=== PATIENT | male | born 1970 | race Caucasian/White ===

== ENCOUNTER 2018-12-29 20:33 | Observation (INO) ==
[2018-12-29] MEDS ORDERED: NS 1,000 ML IV ONE (20:56)
--- NOTE | 2018-12-29 21:37 | Diag Imaging Result Doc PS360 ---
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 Compared to 08/08/2015 there has been no significant change. IMPRESSION: Stable chest. Electronically signed by Sid Fischer 12/29/2018 9:35 PM
--- NOTE | 2018-12-29 21:45 | Diag Imaging Result Doc PS360 ---
EXAM: HAND 2 VIEWS RIGHT 12/29/2018 HISTORY: hand infection TECHNIQUE: Right hand three views COMMENT: There is no evidence of fracture, dislocation, periosteal reaction or erosion. There is what appears to be a bone island in the proximal phalanx of the thumb. IMPRESSION: No evidence of acute bony abnormality. Electronically signed by Sid Fischer 12/29/2018 9:43 PM
[2018-12-29] MEDS ORDERED: TYLENOL PO ONE (22:14)
[2018-12-29 22:37] LABS: BASO# 0.02 X1000 (0.0-0.2); BASO% 0.2 % (0.0-0.8); EOS# 0.01 X1000 (0.0-0.7); EOS% 0.1 % (0.0-10.0); HEMATOCRIT 45.7 % (42.0-52.0); HEMOGLOBIN 15.9 g/dL (14.0-18.0); IMM GRAN# 0.02 X1000 (0.0-0.04); IMM GRAN% 0.2 % (0.0-0.5); LYMPH# 0.63 X1000 (1.2-3.4); LYMPH% 5.5 % (20.5-51.1); MCHC 34.8 g/dL (33-37); MCV 83.2 FL (81-99); MONO# 0.48 X1000 (0.11-0.59); MONO% 4.2 % (1.7-9.3); NEUT# 10.39 X1000 (1.4-6.5); NEUT% 89.8 % (42.2-75.2); PLT 201 X1000 (130-400); RBC 5.49 XMIL (4.7-6.1); RDW 12.6 % (11.5-14.5); WBC 11.55 X1000 (4.8-10.8)
[2018-12-29 22:41] LABS: INR 0.99; PROTIME 13.9 Seconds (11.0-16.0)
[2018-12-29 22:42] LABS: PTT 24.1 Seconds (22.3-41.8)
[2018-12-29 22:54] LABS: AGAP 13; ALB/GLOB RATIO 2.2; ALBUMIN 4.4 g/dL (3.5-5.0); ALKALINE PHOSPHATASE 73 U/L (32-122); BUN 15 mg/dL (8-22); CALCIUM 8.8 mg/dL (8.8-10.2); CHLORIDE 103 mmol/L (98-107); CK PROFILE 132 U/L (24-204); COSMO 279; CREATININE 0.9 mg/dL (0.7-1.2); ESTIMATED GFR > 60; GLUCOSE 113 mg/dL (70-104); GOT 23 U/L (10-34); GPT 19 U/L (10-44); POTASSIUM 3.9 mmol/L (3.5-5.1); SODIUM 139 mmol/L (136-145); TCO2 23 mmol/L (25-35); TOTAL BILIRUBIN 0.65 mg/dL (0.20-1.00); TOTAL PROTEIN 6.4 g/dL (6.3-8.3)
[2018-12-29] MEDS ORDERED: ZOFRAN IV ONE (22:56)
[2018-12-30] MEDS ORDERED: ROCEPHIN 1 GM in NS 50 ML IV ONE (00:18)
[2018-12-30] MEDS ORDERED: NS 1,000 ML IV ONE (00:26)
--- NOTE | 2018-12-30 01:09 | PROVIDER DOCUMENTATION ---
This chart was entered by Batsheva Botello Scribe, acting as scribe for Malissa Omer MD. HPI-General Adult - General Stated Complaint: infection in hand Time Seen by Provider: 12/29/18 20:41 Source: patient, EMS Allergies/Adverse Reactions: Patient Allergies Allergy/AdvReac Type Severity Reaction Status Date / Time immune globulin,gamma (IgG) Allergy Severe ANAPHYLAXIS Verified 12/29/18 21:42 human [From Gammagard S-D (IgA < 1 mcg/mL)] Iodinated Contrast- Oral and Allergy RASH Verified 12/29/18 21:42 IV Dye Home Medications: Home Medication List Medication Instructions Recorded Confirmed Last Taken Type Amlodipine Besylate [Norvasc] 10 mg PO QHS 07/05/16 07/06/16 07/05/16 History Lisinopril 40 mg PO DAILY 07/05/16 07/06/16 07/06/16 History Ondansetron Odt [Zofran 4 mg Odt] 4 mg PO Q6H PRN PRN #10 tablet 07/05/16 07/06/16 07/05/16 Rx SIMVAstatin [Zocor] 10 mg PO QHS 07/05/16 07/06/16 07/05/16 History Tamsulosin [Flomax] 0.4 mg PO DAILY #30 capsule 07/05/16 07/06/16 07/06/16 Rx Diphenhydramine [Benadryl] 50 mg PO TID #15 capsule 07/06/16 Unknown Rx Hydrocodone/Acetaminophen [[place] 1 ea PO Q4-6H PRN PRN #12 tab 03/15/18 Unknown Rx 5-325 Tablet] - History of Present Illness -Gen Adult Nature of Presenting Problems: pt came in ems for n/v, dryheaving, fever of 101 and possible rt hand infection. pt was seen by dr bustillo for possible infection. rt hand was i&d. pt has extensive IGG deficiency. pt does not use cigarettes, alcohol or drugs. Review of Systems - Adult - REVIEW OF SYSTEMS - ADULT Constitutional: reports: see HPI, fever (101). denies: chills, fatique, night s weats Eyes: reports: no symptoms reported Ears, Nose, Mouth & Throat: reports: no symptoms reported Cardiovascular: reports: no symptoms reported Respiratory: reports: no symptoms reported Gastrointestinal: reports: see HPI, nausea, vomiting, other (dry heaving). denies: abdominal pain, hematemesis, diarrhea Genitourinary: reports: no symptoms reported Musculoskeletal: reports: see HPI, joint pain (poss rt hand infection). denies: bone pain, back pain, joint swelling Integumentary: reports: no symptoms reported Neurological: reports: no symptoms reported Psychiatric: reports: no symptoms reported Endocrine: reports: no symptoms reported Hematologic/Lymphatic: reports: no symptoms reported Allergic/Immunologic: reports: no symptoms reported All Other Systems: Reviewed and Negative Past History - Adult - PAST MEDICAL HISTORY-ADULT Review of Records: reports: Old Records Reviewed, Nursing Assessment Review, M edications Reviewed, Social history reviewed & non-contributory. Major Childhood Illnesses: reports: denies history Cardiovascular: reports: HTN, hyperlipidemia Respiratory: reports: denies history Gastrointestinal: reports: other (IGG deficiency) Obstetrical/Gynecological: reports: denies history Genitourinary: reports: denies history Musculoskeletal: reports: denies history Neurological: reports: denies history Endocrine/Immune: reports: denies history Other Conditions: reports: denies history - PRIOR SURGERIES/PROCEDURES Surgical/Procedure History: reports: hernia repair - PRIOR HOSPITALIZATIONS Prior Hospitalizations: reports: for other non-related - IMMUNIZATION STATUS Childhood Immunizations: See Nurse Assessment Flu Vaccine: See Nurse Assessment - FAMILY HISTORY Family History: reviewed, not pertinent - SOCIAL HISTORY Smoking: non-smoker Substance Use: none/never Physical Exam-General - PHYSICAL EXAM-ADULT Initial Vital Signs Reviewed: Yes - CONSTITUTIONAL General Appearance: appears well, alert, no apparent distress - EYES Eyes: PERRL/EOMI, pink conjunctivae - HEAD, EARS, NOSE, MOUTH & THROAT HENMT: normocephalic/atraumatic, moist mucous membranes, normal ENT inspection - NECK Neck: non-tender, full range of motion, supple, normal inspection - RESPIRATORY Respiratory: chest non-tender, lungs clear, normal breath sounds - CARDIOVASCULAR Cardiovascular: normal peripheral pulses, regular rate, rhythm - GASTROINTESTINAL (ABDOMEN) Abdominal Exam: normal bowel sounds, non tender, soft, no organomegaly, no pulsatile mass. negative: abdominal bruit, abnormal bowel sounds, distended - LYMPHATIC Lymphatic: no adenopathy - MUSCULOSKELETAL Back Exam: normal inspection, no CVA tenderness, no vertebral tenderness Extremity: normal range of motion, non-tender, normal inspection Peripheral Pulses: radial (R): 2+, radial (L): 2+ - SKIN Integumentary: normal color, normal turgor, warm/dry - NEUROLOGIC Neurologic: grossly normal, no motor/sensory deficits - PSYCHIATRIC Psych/Mental Status: normal mood/affect, normal thought content, normal thought process, oriented x 3 Progress - PLAN OF CARE/RESULTS Result Diagrams: 12/29/18 22:03 12/29/18 22:03 - CONSULTS/PCP/HOSPITALIST Notification #1 *Consult/PCP/Hospitalist*: Dr. Forte Consult Disposition: Admit Departure - Departure Date of Disposition Decision: 12/30/18 Time of Disposition Decision: 01:09 DIAGNOSIS: Sepsis Disposition: ADMITTED INPATIENT 09 Certified Medical Emergency: Emergent Condition: Stable Additional Freetext Instructions: ED Follow Up Instructions: You have been treated by a care provider in the Emergency Department. These instructions are being provided to you so you can have an understanding of how to care for yourself upon discharge. Upon discharge from the Emergency Department, you are responsible for making arrangements for follow-up care by a physician of your choice. Take all prescribed medications as directed. Return to the Emergency Department immediately for any new or worsening symptoms. You may call the Physician Referral phone number at [phone] to obtain a list of Physicians who are taking new patients. Referrals and Follow-Ups: Cirilo Stanton MD [Primary Care Provider] - - Critical Care Note This patient required my direct & personal management of CC.: No Attestation - Physician/ FRAN Attestation Patient care was provided by Advanced Practice Provider:: No The physician spent face to face time with patient:: Yes Advanced Practice Provider documentation review:: Supervising physician onsite and consulted in the evaluation and care of this patient. The physician did have a face to face encounter with the patient. This chart was documented by the indicated scribe, (Batsheva Botello Scribe) and accurately reflects the services I performed and decisions made by me, Malissa Omer MD, as attested by the provider's signature.
[2018-12-30 02:10] LABS: URINE SOURCE CLEAN CATCH
[2018-12-30] MEDS ORDERED: ZOFRAN IV PRN (02:12)
[2018-12-30 02:15] LABS: BILIRUBIN URINE NEGATIVE (NEGATIVE); BLOOD URINE NEGATIVE (NEGATIVE); COLOR YELLOW; GLUCOSE URINE NEGATIVE (NEGATIVE); KETONE URINE 10 mg/dL (NEGATIVE); LEUKOCYTES URINE NEGATIVE (NEGATIVE); NITRITE URINE NEGATIVE (NEGATIVE); PH URINE 6.5; PROTEIN URINE TRACE mg/dL (NEGATIVE); SP GRAVITY URINE 1.032; TURBIDITY URINE CLEAR (CLEAR); UROBILINOGEN URINE 4 mg/dL (NORMAL)
[2018-12-30 02:17] LABS: UR EPITHELIAL CELLS <10 /HPF (<10); URINE BACTERIA NEGATIVE /HPF; URINE RBC <10 /HPF (<10); URINE WBC <10 /HPF (<10)
[2018-12-30] MEDS ORDERED: BENADRYL PO ONE ×2 (03:03→13:13)
--- NOTE | 2018-12-30 05:38 | HISTORY AND PHYSICAL ---
PRIMARY CARE PHYSICIAN: None. CHIEF COMPLAINT: Nausea, vomiting and fever. HISTORY OF PRESENTING ILLNESS: A 48-year-old male with a history of IgG deficiency, hypertension, and hyperlipidemia, who had initially presented to emergency department due to an abscess on the right dorsum of his hand. The patient had I and D and was sent home. However, he states that when he went home he started having nausea, vomiting and fever, and subsequently he returned to the emergency department. The patient was seen in the ER. Due to his presenting symptoms, it was thought that we will place him for observation for further evaluation and management. At the time of my examination, patient denied any headache, chest pain, shortness of breath, hemoptysis, melena or weight changes, but complained of having fever, nausea and vomiting. PAST MEDICAL HISTORY: Includes IgG deficiency, hypertension and hyperlipidemia. PAST SURGICAL HISTORY: Hernia repair. ALLERGIES: Human IgG. CURRENT MEDICATIONS: Include Norvasc 10 mg p.o. at bedtime, lisinopril 40 mg p.o. daily, [place] 5/325 1 p.o. q.6 hours, simvastatin 10 mg p.o. at bedtime, and Flomax 0.4 mg p.o. daily. SOCIAL HISTORY: No history of smoking, alcohol or illicit drug use. FAMILY HISTORY: No history of coronary disease. REVIEW OF SYSTEMS: Fourteen point review of systems is as in HPI. Other systems negative. PHYSICAL EXAMINATION: GENERAL: Cooperative friendly male. He is resting more comfortably now. VITAL SIGNS: Temperature 100 degrees, pulse 104, respirations 25 and blood pressure 112/88. HEENT: Atraumatic and normocephalic. Extraocular movements intact. PERRLA. NECK: No masses. CHEST: Clear to auscultation. CARDIOVASCULAR: Regular rate and rhythm. ABDOMEN: Soft. Positive bowel sounds. EXTREMITIES: There is a wound on his right dorsum of his hand. : No bladder distention. SKIN: Warm. LABORATORIES AND STUDIES: WBCs 11.55, hemoglobin 15.9, hematocrit 45.7 and platelets 201,000. Sodium 139, potassium 3.9, chloride 103, CO2 23, BUN 15, creatinine 0.9, and glucose is 113. Chest x-ray stable chest. ASSESSMENT: This is a 48-year-old male with a history of IgG deficiency, hypertension and hyperlipidemia, who apparently had I and D of an abscess on the dorsum of his right hand earlier today. The patient was sent home, and he developed nausea, vomiting and fever. Subsequently, he returned to the ER. Due to his persistent symptoms, it was thought that we would place him for observation for further evaluation and management. 1. Nausea, vomiting and fever. 2. Status post I D of right hand abscess. 3. IgG deficiency. 4. Hypertension. PLAN: 1. We will admit patient to medical floor. 2. We will check blood cultures. Start patient on empiric antibiotics. 3. We will continue with supportive treatment with IV fluids and antiemetics as needed. 4. 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 5. We will restart his home medications. 6. We will continue to follow and reassess. Make further recommendations based on patient's clinical course. cc: Laz Forte MD
[2018-12-30] MEDS ORDERED: GAMUNEX-C 10% IV ONE (13:00)
[2018-12-30] MEDS ORDERED: SODIUM CHLORIDE 0.9% INJ ONE (13:13)
[2018-12-30] MEDS ORDERED: ZOFRAN IV ONE (13:13)
[2018-12-30] MEDS ORDERED: TYLENOL PO ONE (13:13)
[2018-12-30] MEDS ORDERED: SOLU-MEDROL IV ONE (13:13)
[2018-12-30] MEDS ORDERED: PEPCID IV ONE (13:13)
[2018-12-30] MEDS ORDERED: NS 500 ML ONE (17:32)
--- NOTE | 2018-12-30 17:46 | PROGRESS NOTE ---
DATE: 12/30/2018 SUBJECTIVE: He has no major complaints. No major fevers. No chest pain or cough. OBJECTIVE: Vital Signs: Blood pressure 133/72, heart rate of 88, respiratory rate 16, temperature 99.4. Cardiovascular: Regular rate and rhythm. Pulmonary: Bilateral breath sounds. Clear to auscultation. Gastrointestinal: Soft, nontender, nondistended. Bowel sounds are positive. I do not have any new data today. His last temp was 100, that was on 05/31. He had a temp of 100 at 2126. PROBLEM LIST: 1. Fever unknown origin, unclear etiology. Reportedly history of bronchiectasis. I am going to try to get a CT and we will continue to follow. If he has persistent fevers, we may need to shift his antibiotics and get an Infectious Disease consult. 2. IgG deficiency. We will continue treatment with that and follow closely. DISPOSITION: Pending clinical status. Hopefully home tomorrow. cc: Lyle Valentine MD
[2018-12-30] MEDS ORDERED: VANCOMYCIN IV PER PHARMACY MISC SCH (20:45)
[2018-12-30] MEDS ORDERED: ZOCOR PO SCH (21:00)
[2018-12-30] MEDS ORDERED: BENADRYL PO SCH (21:00)
[2018-12-30] MEDS ORDERED: VANCOMYCIN 2,100 MG in NS 500 ML IV ONE (22:30)
[2018-12-31] MEDS ORDERED: ROCEPHIN 1 GM in NS 50 ML IV SCH (01:30)
--- NOTE | 2018-12-31 08:58 | Diag Imaging Result Doc PS360 ---
EXAM: CT THORAX W/O CONTRAST INDICATION: r/o PNA TECHNIQUE: This exam was performed using automated exposure control, adjustment of mA or kV according to patient size, and/or use of iterative reconstruction technique. COMPARISON: CTA chest dated 06/22/2012. FINDINGS: There is stable fibrosis with traction bronchiectasis at the left lung base in the left lower lobe as well as in the anterior right lung base thin the right middle lobe. There are several calcified granulomata in the right lower lobe. The lungs are clear, otherwise. No airspace consolidations are appreciated. There is no pleural fluid collection and no pneumothorax. There are calcified mediastinal and right hilar lymph nodes indicating prior granulomatous disease. There is no cardiomegaly. Limited views of the upper abdomen are essentially unremarkable. The bony structures are grossly intact. IMPRESSION: Stable fibrosis and traction bronchiectasis at the lung bases, more prominent on the left. No other airspace consolidations identified to indicate pneumonia. Electronically signed by Nolan Botello 12/31/2018 8:55 AM
[2018-12-31] MEDS ORDERED: PRINIVIL PO SCH (09:00)
[2018-12-31 09:12] LABS: BASO# 0.02 X1000 (0.0-0.2); BASO% 0.4 % (0.0-0.8); EOS# 0.08 X1000 (0.0-0.7); EOS% 1.4 % (0.0-10.0); HEMATOCRIT 41.6 % (42.0-52.0); HEMOGLOBIN 14.1 g/dL (14.0-18.0); LYMPH# 1.37 X1000 (1.2-3.4); LYMPH% 24.2 % (20.5-51.1); MCH 28.8 PG (27-31); MCHC 33.9 g/dL (33-37); MCV 85.1 FL (81-99); MONO# 0.75 X1000 (0.11-0.59); MONO% 13.3 % (1.7-9.3); MPV 9.9 FL (7.4-10.4); NEUT# 3.43 X1000 (1.4-6.5); NEUT% 60.7 % (42.2-75.2); PLT 187 X1000 (130-400); RBC 4.89 XMIL (4.7-6.1); RDW 12.6 % (11.5-14.5); WBC 5.65 X1000 (4.8-10.8)
[2018-12-31 09:46] LABS: AGAP 9; CHLORIDE 105 mmol/L (98-107); GLUCOSE 92 mg/dL (70-104); POTASSIUM 4.1 mmol/L (3.5-5.1); SODIUM 138 mmol/L (136-145); TCO2 24 mmol/L (25-35)
[2018-12-31 09:47] LABS: BUN 14 mg/dL (8-22); CALCIUM 8.1 mg/dL (8.8-10.2); COSMO 276; CREATININE 0.9 mg/dL (0.7-1.2); ESTIMATED GFR > 60
[2018-12-31] MEDS ORDERED: VANCOMYCIN 1,900 MG in NS 500 ML IV SCH (10:30)
--- NOTE | 2018-12-31 14:16 | HEMO/ONC CONSULTATION ---
DATE: 12/30/2018 ADMITTING PHYSICIAN: Dr. Laz Forte. REQUESTING PHYSICIAN: Dr. Laz Forte. We appreciate this consult. CHIEF COMPLAINT: Hypogammaglobulinemia. HISTORY OF PRESENT ILLNESS: Mr. Staley is a pleasant, 48-year-old, male, well known to Dr. Stanton with a history of hypogammaglobulinemia, hypertension, hyperlipidemia, who presented to [facility] Emergency Department secondary to abscess on the dorsum of his right hand. The patient underwent incision and drainage, and was sent home. The patient, however, reported that he began to experience nausea, vomiting, and fever, and returned to the emergency department, where he was admitted for observation. We are consulted as the patient is well known to us with a history of hypogammaglobulinemia and undergoes IgG infusions every 4 weeks. Last infusion was 12/03/2018. PAST MEDICAL HISTORY: As in HPI. PAST SURGICAL HISTORY: Hernia repair. SOCIAL HISTORY: The patient does not use tobacco, alcohol, or illicit drugs. FAMILY HISTORY: Negative for any hematologic or oncologic disease. MEDICATIONS ON ADMISSION: 1. Norvasc. 2. Lisinopril. 3. [place]. 4. Simvastatin. 5. Flomax. ALLERGIES: Human IgG. REVIEW OF SYSTEMS: A 14-point review of systems was obtained and is negative, except for mentioned in the HPI. PHYSICAL EXAMINATION: General: Mr. Staley is a very pleasant, 48-year-old male, lying supine in bed in no immediate distress. Vital Signs: Temperature is 99.4 degrees, blood pressure 105/70, heart rate 82, respirations 18, O2 saturation is 94% on room air. HEENT: Normocephalic, atraumatic. Mucous membranes are pink and moist. Sclerae is anicteric. Extraocular movements intact. Neck: Supple. Lungs: Clear to auscultation bilaterally. Chest expansion is equal bilaterally. CV: S1, S2 is heard. No murmurs, rubs, or gallops. Abdomen: Nondistended, nontender. Bowel sounds are positive in all quadrants. No rebound or guarding noted. Extremities: Without clubbing, cyanosis, or edema. Dermatologic: No rashes, bruises, or lesions. Neurologic: The patient is awake, alert, and oriented x3. He has no focal deficits, and gait is normal. LABORATORY DATA: Hemoglobin 15.9, hematocrit 45.7, white blood cell count 11.55, platelets 201. Sodium 133, potassium 3.9, chloride 103, CO2 is 23, BUN 15, creatinine 0.9, glucose is 113, calcium 8.8. Magnesium 1.6. Urinalysis is negative for UTI. IMAGING STUDIES: Hand x-ray reveals no bony abnormality. Chest x-ray is stable. ASSESSMENT AND PLAN: 1. Hypogammaglobulinemia. Last IgG was given on 12/03/2018. We will treat the patient with intravenous immunoglobulin at this time. The patient will follow up in clinic following discharge. 2. Right hand abscess. The patient is currently on ceftriaxone. Blood cultures are currently pending. 3. Nausea, vomiting, and fever, likely secondary to #2. We will follow along with you and make further recommendations pending outcomes. The above reflects the history, exam, assessment, and plan of Dr. Stanton. Dictated by DAVID Small for Cirilo Stanton MD cc: DAVID Small MD
[2018-12-31 15:34] VITALS: BP 124/65
--- NOTE | 2019-01-01 07:21 | DISCHARGE SUMMARY ---
ADMISSION DATE: 12/30/2018 DISCHARGE DATE: 12/31/2018 DISCHARGE DIAGNOSES: 1. Bronchiectasis with fever. 2. IgG deficiency. HOSPITAL COURSE: Briefly, this is a 48-year-old male presenting with nausea, vomiting. He had a small abscess on his hand which was I and D'ed, but he came in with nausea, vomiting, and fever. His fever here was never higher than about 100, but he does have an IgG deficiency and there was concern over a massive infection in that setting. His workup in the ER was really unremarkable. He did have a little bit of white count, 11.5. Chest x-ray was read as pretty much unremarkable. Hand x-ray was negative. The patient was admitted. Hematology/oncology was consulted. He sees Dr. Stanton. His chest CT showed bronchiectasis which he had previously in 2011 but I do think that is probably the cause of his fever, especially in this setting of IgG deficiency. He was treated with vancomycin and Rocephin, and I discharged him on Levaquin. Dr. Stanton evaluated him and gave him immunoglobulin. All his microbiological stuff was negative. He had one blood culture positive for coagulase-negative staphylococcus. He was felt stable for discharge. DISCHARGE MEDICATIONS: Zocor 10 daily, lisinopril 40 daily, Levaquin 500 daily for 10 days. DISCHARGE INSTRUCTIONS: I encouraged him to follow up with Dr. Chiang but he will have to get a referral from Dr. Stanton or his primary if they feel that it is necessary to follow up with him as an outpatient. cc: Lyle Valentine MD
== END 2018-12-31 17:43 | disposition home or self-care (01) ==
LOC: SUPCPDRO → ED 20:33 → 4N 20:33 → SUATTDRO 12-30 01:30
PROVIDERS: ATTEND Internal Medicine
CPT/HCPCS: 71010; 71045; 71250; 73120; 80048; 80053; 81001; 82550; 83605; 83735; 84484; 85025; 85610; 85730; 87040; 87275; 87276; 87804; 94761; A9270; J0696; J1561; J2405; J2920; J3370; J7030; J7040; S0028